=== PATIENT | female | born 1950 | race Caucasian/White ===

== ENCOUNTER → 2020-05-11 | Outpatient (CLI) | payer OTHER, MEDICARE ==
[~2020-05-11] VITALS: Ht 162.6 cm; Wt 50.8 kg
[~2020-05-11] MED LIST: FOSAMAX 70 MG T70 MG PO; HYDROXYZINE HCL25 M2 PO; LAMOTRIGINE100 MG PO; LEXAPRO 10 MG T10 MG PO; LISINOPRIL10 MG PO; NEURONTIN300 MG PO; TRAMADOL 50 MG50 MG PO; VITAMIN D250 MCG PO
[2020-05-11 13:15] VITALS: BP 112/72
--- NOTE | 2020-05-11 13:38 | NUR ---
Pain Clinic Assessment: 1. History of Osteoarthritis: LOW BACK History of Rheumatoid Arthritis: 2. Height: 5 ft. 4 in. 162.6 cm. Weight: 112.0 lb. oz. 50.803 kg. Patient's BMI: 19.2 3. Vital Signs: BP: 112/72 Pulse: 72 Resp: 14 Temp: 02 Sat: 99 ECG Mon: 4. Pain Intensity: 7 5. Fall Risk: Dizziness: N Needs help standing or walking: N Fallen in the last 3 months: N Fall risk comments: 6. Patient on Blood Thinner: None 7. History of Hypertension: Y 8. Opioid Therapy greater than 6 weeks: Opiate Contract Signed: 9. Risk Assessment Tool Provided: O LOW RISK 10. Functional Assessment Tool: 11. Recreational Drug Use: Never Drug Type: Tobacco Use: Never Smoker Tobacco Type: Amount or Packs/day: How Many Years: Alcohol Use: No Frequency: Quant:
--- NOTE | 2020-05-12 16:02 | HPC ---
[facility] [address] [place] [address] PAIN MANAGEMENT CONSULTATION Name: YOSELYN WISE Room #: REG [facility]..#: [id number] Admission: 05/11/20 Attend Phys: Obey Gonzalez DO Discharge: Date of : 54 Report #: [id number] THIS REPORT FOR: cc: Kelly Armenta MD, Mary K. MD Johnson, James E. DO ~ DATE OF SERVICE: 05/11/2020 REFERRING PHYSICIAN: Yasmeen Marsh NP CHIEF COMPLAINT: Low back pain, left lower extremity pain with paresthesias. HISTORY OF PRESENT ILLNESS: As you know, the patient is a 69-year-old female who reports longstanding history of low back pain, progressively worsening left lower extremity pain with paresthesias. The patient states she has had lumbar epidural injections in the past provided at Pain with Dr. Tran and underwent those injections periodically. She states that over a period of time, those began to lose efficacy. She was advised to look toward surgical options. She chose more conservative route and did not seek surgical consultations. She states that she was then sent on to see Dr. Sarmiento who provided epidural injections, but again began to lose efficacy quite quickly and she subsequently discontinued that activity. She states that she has been doing a home exercise program and stretching exercise over the past, but does not participate with that on a daily basis. She has had on and off left knee pain for which she is receiving intraarticular injections with PRP, which apparently is improving pain. She states over the past 6 months, her pain has begun to intensify. She denies injury or trauma. She sought evaluation through her primary care physician, requesting that she be provided pain medications as apparently she had received tramadol in the past with good efficacy. She was advised that she had to seek evaluation through pain management to determine whether or not that would be an appropriate treatment option as her PCP did not feel comfortable writing medications without evaluation through pain management and she was subsequently referred to our clinic. The patient indicates today pain is continuous. She describes the pain as aching. Places current pain score 7/10, daily average at 7/10, worst pain has been 10/10. The patient states pain is exacerbated with walking and standing, improves with sitting down. She also reports improvement in symptoms with intermittent use of tramadol and rest. She has been referred to our clinic to discuss treatment options for suspected lumbar radiculopathy. She comes to us today with no current imaging to review. PAST MEDICAL HISTORY: 1. Osteoarthritis. 2. Spinal stenosis. 3. Hypertension. [address] [address] PAIN MANAGEMENT CONSULTATION Name: YOSELYN WISE Room #: REG [facility]#: [id number] Admission: 05/11/20 Attend Phys: Obey Gonzalez DO Discharge: Date of : 54 Report #: [id number] 4. Depression. 5. Osteopenia. PAST SURGICAL HISTORY: 1. Right total hip arthroplasty. 2. Cataract surgery, bilateral. SOCIAL HISTORY: The patient reports she is a nonsmoker. Denies IV or illicit drug use. Denies any chronic alcohol use. 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 She is working, not receiving workmen's compensation nor is she trying to obtain disability benefits. She is not in litigation in regards to pain. She is unaccompanied at today's visit. REVIEW OF SYSTEMS: Positive for decrease in appetite, fatigue and weakness, wearing corrective eyewear, cataracts, nocturia, seizure activity, numbness and tingling sensations involving the left lower extremity and chronic low back pain. All other review of systems negative per 12-point review of systems other than those listed in history of present illness. Pain impact score of 30/70 indicating moderate interference of daily activities secondary to pain. ALLERGIES: PENICILLIN. CURRENT MEDICATIONS: Lisinopril 10 mg once a day, lamotrigine 100 mg once a day, Lexapro 10 mg once a day, alendronate 70 mg once a week, vitamin D2 50 mcg per day, hydroxyzine 25 mg per day. IMAGING: No imaging available. PQRS: The patient has known arthritic changes of the bilateral hips and knees. No rheumatoid arthritis. She is placing pain intensity as 7/10. She is not a fall risk, has not had a fall in last 3 months. She is not on blood thinners, but is treated for hypertension. She is not on chronic opioids, has a low opioid addiction potential. Pain impact is 30/70, moderate interference of daily activities secondary to pain. PHYSICAL EXAMINATION: VITAL SIGNS: Blood pressure 112/72, pulse 72, respiratory rate 14 and unlabored. The patient is 99% on room air. Height 5 feet 4 inches tall, weight 112 pounds, BMI calculated 19.2. GENERAL: Well-developed, well-nourished, well-hydrated 69-year-old female appearing stated age, pain is rated today 7/10. HEENT: Normocephalic, atraumatic. Pupils equal, round, and responsive. Extraocular muscles are intact. The patient is wearing a mask in compliance with COVID-19 regulations. [address] [address] PAIN MANAGEMENT CONSULTATION Name: YOSELYN WISE [id number] Admission: 05/11/20 Attend Phys: Obey Gonzalez DO Discharge: Date of : 54 Report #: [id number] LUNGS: Clear. No wheeze, rhonchi or rales. CARDIOVASCULAR: Regular. No appreciable gallop, no rub. ABDOMEN: Soft, nontender. EXTREMITIES: Show no clubbing, no cyanosis, no edema. MUSCULOSKELETAL: Lower extremity strength appears symmetrical 5/5. Slight giveaway strength noted on the left with hip flexion, knee extension due to generation of pain. Muscle bulk is equal and symmetrical in comparing lower extremities. Intact to light touch from L1 through S2 dermatomes. Deep tendon reflexes equal and symmetrical at patella and Achilles. Ankle clonus negative. Babinski is negative. Seated straight leg raising positive on the left. Supine straight leg raising positive on the left. Narayan's test is mildly positive on the left. There is pain elicited with active and passive range of motion of left knee, negative right. ASSESSMENT: 1. Symptomatic lumbar radiculopathy. 2. Lumbosacral spondylosis with radiculopathy. 3. Chronic low back pain. 4. Osteoarthritis of the hip. 5. Osteoarthritis of the knee. PLAN: 1. Based on today's physical exam and history the patient has provided, the description the patient uses in regards to pain as well as location of symptoms, it would appear the patient is suffering from a lumbar radiculopathy. The patient has received epidural injections in the past at 2 different pain clinics, both of which provided some improvement in symptoms, but unfortunately not for an extended period of time. She comes to us today with no new imaging studies, so it is difficult for us to determine the pathology that exists though given her distribution, it would appear that she either is suffering from central canal stenosis with effects on the left side or neural foraminal stenosis. There is also a possibility the patient has a unilateral disk bulge that is the source of symptoms. We discussed with the patient in generalities the treatment options for lumbar radiculopathy as we do not have a definitive diagnosis for the pathology in the lumbar region as imaging is not available. We discussed the following with the patient today. We discussed physical therapy, stretching exercises and core strengthening as a treatment course. We discussed medication management utilizing neuropathic pain medication such as amitriptyline, nortriptyline, Cymbalta, Lyrica, gabapentin. We discussed minimal use of pain medication such as tramadol, but only on a very short-term basis. No long-term treatment options with that medication. This would only be for initial treatment as we continue the workup towards more definitive treatment. We also discussed epidural injections for which the patient was referred to our clinic. We discussed surgical options with the patient including spinal cord stimulator and surgical decompression. After [facility] [address] [place] [address] PAIN MANAGEMENT CONSULTATION Name: WISEYOSELYN Larose Room #: REG [facility]#: [id number] Admission: 05/11/20 Attend Phys: Obey Gonzalez DO Discharge: Date of : 54 Report #: [id number] reviewing risks and benefits of all proposed treatment options, the patient chose to begin with medication management. 2. The patient was provided a prescription of gabapentin 300 mg dose. She is to begin 1 tab p.o. at bedtime for 7 nights, increase to 2 tabs p.o. at bedtime for 7 nights. If no improvement in symptoms, no side effects, then increase to 1 tab in the morning, 2 tablets at night. If no improvement in symptoms, no side effects, then increase to 2 tabs in morning, 2 tablets at night or 600 mg b.i.d. The patient was given #90 tablets to attain this increase in medication and she was advised when she reaches an efficacious level to maintain at that level of dosing. If no improvement in symptoms, no side effects, continue the titration as directed. She was given information about the medication, watch for side effects. If she has any issues, contact our clinic. 3. We have provided the patient with a short dosing of tramadol 50 mg dose. At this point, we have advised the patient we will give her a prescription of medication. If she sees improvement, she can follow up with her PCP to continue this treatment, does not require nor will we provide long-term treatment options with tramadol. If the patient wishes to remain on that medication, she will have to seek this through her PCP. We have given her #60 tablets of tramadol to take on an as needed basis. We recommend that she take this as infrequently as possible. The prescription was sent via e-scribe to local pharmacy. 4. We will plan to see the patient back in followup visit in approximately 30 days. At that time, we will review the efficacy of the gabapentin treatment provided today and determine if more aggressive treatment options are going to be necessary. If she is doing well with the medication, she can follow up with PCP to continue this treatment. 5. We wish to thank nurse practitioner, Yasmeen Marsh for the opportunity to see this patient in consultation. We will keep you apprised of response to treatment as we address suspected lumbar radiculopathy. Again, we wish to thank you for the opportunity to see her in consultation. <ELECTRONICALLY SIGNED> By: Obey Gonzalez DO 05/12/20 1602 [id number] Obey Gonzalez DO /nt
== END ==
LOC: PAIN 06:56
PROVIDERS: ATTEND Anesthesiology Pain Medicine
DX: M47.27 Other spondylosis with radiculopathy, lumbosacral region (principal); M79.605 Pain in left leg; R20.2 Paresthesia of skin; G89.29 Other chronic pain; M17.10 Unilateral primary osteoarthritis, unspecified knee; M16.10 Unilateral primary osteoarthritis, unspecified hip; Z88.8 Allergy status to other drugs, medicaments and biological substances; Z79.899 Other long term (current) drug therapy

== ENCOUNTER → 2020-05-25 | Outpatient (CLI) | payer OTHER, MEDICARE ==
[~2020-05-25] VITALS: Ht 162.6 cm; Wt 52.1 kg
[~2020-05-25] MED LIST changes: +NEURONTIN 300M300 M2 PO
[2020-05-25 14:14] VITALS: BP 113/76
--- NOTE | 2020-05-25 14:19 | NUR ---
Pain Clinic Assessment: 1. History of Osteoarthritis: LOW BACK History of Rheumatoid Arthritis: Not Applicable 2. Height: 5 ft. 4 in. 162.6 cm. Weight: 114.8 lb. oz. 52.073 kg. Patient's BMI: 19.7 3. Vital Signs: BP: 113/76 Pulse: 68 Resp: 14 Temp: 02 Sat: 97 ECG Mon: 4. Pain Intensity: 8 5. Fall Risk: Dizziness: N Needs help standing or walking: N Fallen in the last 3 months: N Fall risk comments: 6. Patient on Blood Thinner: None 7. History of Hypertension: Y 8. Opioid Therapy greater than 6 weeks: N Opiate Contract Signed: 9. Risk Assessment Tool Provided: O LOW RISK 10. Functional Assessment Tool: 11. Recreational Drug Use: Never Drug Type: Tobacco Use: Never Smoker Tobacco Type: Amount or Packs/day: How Many Years: Alcohol Use: No Frequency: Quant:
--- NOTE | 2020-06-02 16:06 | HPC ---
[facility] [place] [address] PAIN MANAGEMENT CONSULTATION Name: YOSELYN WISE Room #: REG [facility].#: [id number] Admission: 05/25/20 Attend Phys: Obey Gonzalez DO Discharge: Date of : 54 Report #: [id number] THIS REPORT FOR: cc: Klely Armenta MD, Mary K. MD Johnson, James E. DO ~ DOC #: [id number] DATE OF SERVICE: 05/25/2020 REFERRING PHYSICIAN: Yasmeen Wood NP CHIEF COMPLAINT: Low back pain, left lower extremity pain and paresthesias. HISTORY OF PRESENT ILLNESS: As you know, the patient is a 69-year-old female with longstanding history of low back pain, progressively worsening left lower extremity pain with paresthesias. The patient was seen in our clinic per the request of the referring team to discuss treatment options including lumbar radiculopathy on 05/11/2020. She has returned today in followup visit having trialed conservative treatment to move forward with a lumbar epidural injection under fluoroscopic guidance. The patient is placing her current pain score 8/10. She indicates no new injury or trauma that may have led to symptom reoccurrence and continuation. She was given a short dosing of tramadol for which the patient states she is receiving good benefit. I did advise the patient that the tramadol would only be provided during the times that we are treating her symptoms. We would not be taking on long-term opioid medication management patients and that she would have to continue this medication if she found it beneficial through her PCP who referred the patient to our clinic. She returns today in followup visit to undergo lumbar epidural injection under fluoroscopic guidance. The patient is placing current pain score 8/10. ALLERGIES: PENICILLIN. CURRENT MEDICATIONS: Lisinopril, lamotrigine, escitalopram, alendronate, vitamin D2, hydroxyzine, tramadol, gabapentin. SOCIAL HISTORY: The patient denies tobacco. Denies IV or illicit drug use. Denies chronic alcohol use. 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 Unaccompanied today. IMAGING: No new imaging available. PQRS: The patient has known arthritic changes of bilateral hips and knees as well as lumbar spine. No rheumatoid arthritis. She is placing current pain score at 8/10. She is not a fall risk and does not have a fall in the last 3 months. She is not on blood thinners, but is treated for hypertension. She is not on chronic opioids as well opiate addiction potential based on assessment tool. Pain impact is 30/70, moderate interference of daily activities [address] [address] PAIN MANAGEMENT CONSULTATION Name: YOSELYN WISE Room #: REG [facility]#: [id number] Admission: 05/25/20 Attend Phys: Obey Gonzalez DO Discharge: Date of : 54 Report #: [id number] to pain. PHYSICAL EXAMINATION: VITAL SIGNS: Blood pressure 113/76, pulse is 68, respiratory rate 14 and unlabored. The patient 97% on room air, height 5 feet 4 inches tall, weight 114.8 pounds, BMI calculated 19.7. GENERAL: Well-developed, well-nourished, well-hydrated 69-year-old female appearing stated age. Pain is rated at 8/10. HEENT: Normocephalic, atraumatic. Pupils are round and responsive. The patient is wearing a mask in compliance with COVID-19 regulations. EXTREMITIES: Showed no clubbing, no cyanosis, no edema. MUSCULOSKELETAL: Lower extremity strength remained symmetrical again today 5/5. Giveaway strength was noted with hip flexion on the left when compared to the right. Seated straight leg raising is positive on the left. Supine straight leg raising positive on the left. Narayan's test is negative. Gait appears mildly antalgic favoring left lower extremity. ASSESSMENT: 1. Symptomatic lumbar radiculopathy. 2. Lumbosacral spondylosis with radiculopathy. 3. Chronic low back pain. 4. Osteoarthritis of the hip. 5. Osteoarthritis of the knee. PLAN: 1. The patient returns today in followup visit to undergo lumbar epidural injection under fluoroscopic guidance. The patient has been advised the risks and benefits of this procedure. These risks include but are not necessarily limited to bleeding, bruising, infection, worsening pain, no relief of pain, also risk of temporary or permanent muscle weakness, temporary or permanent nerve damage, possible paralysis, and . The patient states understood and wished to proceed. 2. The patient was provided a short dosing of tramadol for pain control. I have given #60 tablets of the 50 mg dose. This was sent to local pharmacy, no refills. The patient was advised to take the medication only as directed, not to take the medication prophylactically. She will watch for any side effects with its use. 3. We plan to see the patient back in followup visit in approximately 30 days. At that time, review the efficacy of today's epidural injection and determine if continuing epidural injections would make sense or referral on to surgery. The patient is agreeable with plan. PROCEDURE NOTE DESCRIPTION OF PROCEDURE: Lumbar epidural steroid injection under fluoroscopic guidance. [address] [address] PAIN MANAGEMENT CONSULTATION Name: YOSELYN WISE Room #: REG [facility]#: [id number] Admission: 05/25/20 Attend Phys: Obey Gonzalez DO Discharge: Date of : 54 Report #: [id number] This is the first procedure of the first series that the patient is undergoing. After obtaining written consent, the patient was taken back to the fluoroscopy suite, placed in a prone position with pillow under the abdomen to decrease lumbar lordosis. The skin overlying the lumbosacral area was then prepped and draped in aseptic fashion. The L5-S1 vertebral interspace was then identified by AP fluoroscopy. The skin and subcutaneous tissue overlying the target site of injection was anesthetized with 3 mL 1% lidocaine. A 20-gauge 3-1/2 inch Tuohy needle was then advanced under fluoroscopic guidance towards the epidural space using a parasagittal approach. The epidural space was identified using loss of resistance to air technique. After negative aspiration for heme or cerebrospinal fluid, a total of 1 mL of Omnipaque was injected. A lumbar epidurogram was confirmed using both AP and lateral fluoroscopy. After negative aspiration for heme or cerebrospinal fluid, 5 mL of solution containing 2 mL, 40 mg per mL, 80 mg total triamcinolone along with 3 mL lidocaine 1% was injected in increments. Contrast spread was noted post-epidural space. The needle was then retracted approximately half way and needle tract flushed with 1 mL of lidocaine. Needle was then removed. There were no apparent sensory or motor deficits in the lower extremity following the procedure. A sterile bandage was placed over the injection site. The heart rate, pulse, oximetry and blood pressure were continuously monitored after the procedure. There were no apparent complications. The patient tolerated the procedure well and was carefully escorted to the recovery room in stable condition. There were no apparent complications. After meeting discharge criteria, the patient was then discharged home. Obey Gonzalez DO JEJ/KDA <ELECTRONICALLY SIGNED> By: Obey Gonzalez DO 06/02/20 1606 [id number] [id number] Obey Gonzalez DO /nt
== END | disposition home or self-care (01) ==
LOC: PAIN 12:19
PROVIDERS: ATTEND Anesthesiology Pain Medicine
DX: M47.27 Other spondylosis with radiculopathy, lumbosacral region (principal); G89.29 Other chronic pain; M54.5 Low back pain; I10 Essential (primary) hypertension; M19.90 Unspecified osteoarthritis, unspecified site; Z98.890 Other specified postprocedural states; Z79.899 Other long term (current) drug therapy; Z88.8 Allergy status to other drugs, medicaments and biological substances; Z88.0 Allergy status to penicillin